=== PATIENT | male | born 1960 | race American Indian/Alaskan Native ===

== ENCOUNTER 2020-04-12 19:55 | Emergency (ER) | payer BC, OTHER ==
[2020-04-12 20:11] VITALS: BP 110/67; PULSE 81; TEMP 98.9; BMI 25.1
== END 2020-04-12 22:06 | disposition home or self-care (01) ==
LOC: JER 19:55
DX: U07.1 COVID-19 (principal)
CPT/HCPCS: 99283-25; C9803; U0003